=== PATIENT | male | born 1955 | race Caucasian/White ===

== ENCOUNTER 2017-02-16 19:26 | Emergency (ER) | payer BC, MEDICAID ==
--- NOTE | 2017-02-16 20:10 | EDM.PDOC ---
ED HPI GENERAL MEDICAL PROBLEM - General Chief Complaint: Eye Problems Stated Complaint: FB L EYE Time Seen by Provider: 02/16/17 19:45 Source of Information: Reports: Patient History Limitations: Reports: No Limitations - History of Present Illness INITIAL COMMENTS - FREE TEXT/NARRATIVE: Patient was walking outside in the wind today and something has blown into his left eye that is irritating it. No vision changes or other complaints. Onset: Today Onset Date: 02/16/17 Onset Time: 19:00 Duration: Hour(s): (1) Location: Reports: Other (Left eye) Quality: Reports: Sharp, Throbbing, Other (Eye irritation.) Severity: Moderate Improves with: Reports: None Worsens with: Reports: None Context: Reports: Other (Dust got blown into eye.) Associated Symptoms: Reports: No Other Symptoms left eye Pain Score (Numeric/FACES): 7 - Related Data Allergies Allergy/AdvReac Type Severity Reaction Status Date / Time caffeine Allergy Hives Verified 02/16/17 19:50 Home Meds: Home Meds Allopurinol [Zyloprim] 300 mg PO DAILY 06/30/13 [History] Naproxen Sodium [Aleve] 220 mg PO Q8HR 06/30/13 [History] Multivitamin [Multi-Vitamin Daily] 1 each PO DAILY 07/01/13 [History] ED ROS GENERAL - Review of Systems Review Of Systems: ROS reveals no pertinent complaints other than HPI. ED EXAM GENERAL W FULL EYE - Physical Exam Exam: See Below Exam Limited By: No Limitations General Appearance: Alert, WD/WN, No Apparent Distress Eye Exam: Bilateral Eye: Corneal Abrasion (Left eye), Foreign Body (Left eye, small piece of dirt) Visual Acuity (R) 20/: 20 Visual Acuity (L) 20/: 20 With Correction: Yes Eyelids: Bilateral: Normal Appearance Conjunctiva & Sclera: Left: Foreign Body Cornea Exam: Left: Corneal Abrasion (small 2 mm abrasion.), Examined with Flourescein Extraocular Movements: Bilateral: Intact Pupils: Normal Accommodation Pupillary Reaction: Bilateral: Brisk Anterior Chamber: Bilateral: Normal Appearance Posterior Chamber: Bilateral: Normal Funduscopic Ears: Normal External Exam, Normal Canal, Hearing Grossly Normal, Normal TMs Nose: Normal Inspection Throat/Mouth: Normal Inspection, Normal Lips, Normal Teeth, Normal Gums, Normal Oropharynx, Normal Voice, No Airway Compromise Head: Atraumatic, Normocephalic Neck: Normal Inspection, Supple, Non-Tender, Full Range of Motion Respiratory/Chest: No Respiratory Distress, Lungs Clear, Normal Breath Sounds, No Accessory Muscle Use, Chest Non-Tender Cardiovascular: Normal Peripheral Pulses Extremities: Normal Inspection, Normal Range of Motion, Non-Tender, Normal Capillary Refill, No Pedal Edema Neurological: Alert, Oriented, CN II-XII Intact, Normal Cognition, Normal Gait, Normal Reflexes, No Motor/Sensory Deficits Psychiatric: Normal Affect Course - Vital Signs Text/Narrative:: Patient had an uneventful ED course. We cleaned out the left eye foreign body and treated the corneal abrasion with neomycin ointment. He will use that prn. Last Recorded V/S: Last Vital Signs Temp 36.6 C 02/16/17 19:35 Pulse 70 02/16/17 19:35 Resp 18 02/16/17 19:35 BP 116/80 02/16/17 19:35 Pulse Ox 99 02/16/17 19:35 Departure - Departure Time of Disposition: 20:13 Disposition: Home, Self-Care 01 Condition: Good Clinical Impression: Foreign body in eyeball, left - Discharge Information Referrals: Vickey Jonas MD [Primary Care Provider] -
== END 2017-02-16 20:25 | disposition home or self-care (01) ==
LOC: FB.ED 19:26
DX: T15.12XA Foreign body in conjunctival sac, left eye, initial encounter (principal); S05.02XA Injury of conjunctiva and corneal abrasion without foreign body, left eye, initial encounter; Z87.891 Personal history of nicotine dependence
CPT/HCPCS: 99283

== ENCOUNTER 2023-02-06 21:37 | Emergency (ER) | payer BC ==
[2023-02-06] MEDS ORDERED: traMADol 50 MG Tab PO ONE (21:38)
== END 2023-02-06 22:44 | disposition home or self-care (01) ==
LOC: FB.ED 21:37
DX: S62.315A Displaced fracture of base of fourth metacarpal bone, left hand, initial encounter for closed fracture (principal); Z88.8 Allergy status to other drugs, medicaments and biological substances; W19.XXXA Unspecified fall, initial encounter
CPT/HCPCS: 73130; 99283; A9270

== ENCOUNTER 2024-06-17 06:40 | Day surgery (SDC) | payer BC ==
[2024-06-17] MEDS ORDERED: Lidocaine 1% PF 2 ML SDV IV ONE (06:41)
[2024-06-17] MEDS ORDERED: Propofol 200 MG/20 ML SDV IV ONE (06:41)
[2024-06-17] MEDS ORDERED: Sodium Chloride 0.9% 10 ML Syringe FLUSH PRN (07:00)
[2024-06-17] MEDS: Lactated Ringers 1,000 ML IV SCH (08:03)
[2024-06-17] MEDS: Simethicone Drops 40 MG/0.6 ML 30 ML Bottle ONE (08:26)
== END 2024-06-17 09:55 | disposition home or self-care (01) ==
LOC: FB.SDS 06:40
PROVIDERS: ATTEND Surgery
DX: Z12.11 Encounter for screening for malignant neoplasm of colon (principal); E11.9 Type 2 diabetes mellitus without complications; E78.5 Hyperlipidemia, unspecified; E66.9 Obesity, unspecified; Z68.41 Body mass index [BMI] 40.0-44.9, adult; Z79.84 Long term (current) use of oral hypoglycemic drugs; Z79.899 Other long term (current) drug therapy; Z79.82 Long term (current) use of aspirin; Z87.891 Personal history of nicotine dependence; Z91.018 Allergy to other foods
CPT/HCPCS: 00812; 45378; 82947; A9270; J2704; J7120; J2003